=== PATIENT | male | born 1980 | race Two or more races ===

== ENCOUNTER 2018-10-19 06:38 | Outpatient (CLI) | payer OTHER | END 2018-10-19 06:46 | disposition home or self-care (01) | LOC: LAB 06:38 | DX: D50.8 Other iron deficiency anemias (principal); D55.0 Anemia due to glucose-6-phosphate dehydrogenase [G6PD] deficiency; I10 Essential (primary) hypertension; D51.1 Vitamin B12 deficiency anemia due to selective vitamin B12 malabsorption with proteinuria; E03.8 Other specified hypothyroidism; E06.3 Autoimmune thyroiditis; D51.8 Other vitamin B12 deficiency anemias; D51.0 Vitamin B12 deficiency anemia due to intrinsic factor deficiency ==

== ENCOUNTER 2019-04-15 12:23 | Outpatient (CLI) | payer OTHER | END 2019-04-15 12:36 | disposition home or self-care (01) | LOC: LAB 12:23 | DX: N40.0 Benign prostatic hyperplasia without lower urinary tract symptoms (principal) ==

== ENCOUNTER → 2020-01-29 06:30 | Outpatient (CLI) | payer OTHER | END | disposition home or self-care (01) | LOC: LAB 06:30 | PROVIDERS: ATTEND Internal Medicine Hematology & Oncology | DX: D50.8 Other iron deficiency anemias (principal); I10 Essential (primary) hypertension; D55.0 Anemia due to glucose-6-phosphate dehydrogenase [G6PD] deficiency; D51.8 Other vitamin B12 deficiency anemias; D51.3 Other dietary vitamin B12 deficiency anemia; R97.20 Elevated prostate specific antigen [PSA] ==

== ENCOUNTER 2023-11-02 06:26 | Outpatient (CLI) | payer OTHER ==
[2023-11-03 11:07] LABS: % FREE PSA 19.5 % (.); free psa 0.39 ng/mL
== END 2023-11-02 06:33 | disposition home or self-care (01) ==
LOC: LAB 06:26
PROVIDERS: ATTEND Urology
DX: R97.20 Elevated prostate specific antigen [PSA] (principal)